=== PATIENT | female | born 1965 ===

== ENCOUNTER 2021-10-02 07:41 | Outpatient (CLI) | payer OTHER | END 2021-10-02 08:52 | disposition home or self-care (01) | LOC: SONOGRAMA 07:41 | PROVIDERS: ATTEND Pathology Anatomic Pathology & Clinical Pathology | DX: E04.2 Nontoxic multinodular goiter (principal) ==

== ENCOUNTER 2024-11-23 08:12 | Outpatient (CLI) | payer OTHER | END 2024-11-23 08:14 | disposition home or self-care (01) | LOC: SONOGRAMA 08:12 | PROVIDERS: ATTEND Pathology Anatomic Pathology & Clinical Pathology | DX: R59.0 Localized enlarged lymph nodes (principal) ==